=== PATIENT | male | born 1975 | race Caucasian/White ===

== ENCOUNTER 2018-03-27 08:43 | Emergency (ER) | payer SELFPAY ==
[2018-03-27] MEDS: LIDOCAINE 1% (MPF) 5 ML VIAL INJ (10:06)
== END 2018-03-27 11:37 | disposition home or self-care (01) ==
LOC: FTE 08:43
DX: S61.215A Laceration without foreign body of left ring finger without damage to nail, initial encounter (principal); W23.0XXA Caught, crushed, jammed, or pinched between moving objects, initial encounter; Y92.9 Unspecified place or not applicable
CPT/HCPCS: 12001; 73140; 99283-25

== ENCOUNTER → 2018-04-01 | Emergency (ER) | payer SELFPAY | END | disposition home or self-care (01) | LOC: FTE 11:18 | DX: Z48.01 Encounter for change or removal of surgical wound dressing (principal) | CPT/HCPCS: 99281 ==

== ENCOUNTER 2018-04-10 13:31 | Emergency (ER) | payer SELFPAY | END 2018-04-10 17:47 | disposition left against medical advice (07) | LOC: FTE 13:31 | DX: Z53.21 Procedure and treatment not carried out due to patient leaving prior to being seen by health care provider (principal) ==